=== PATIENT | male | born 1965 | race Caucasian/White ===

== ENCOUNTER 2017-01-09 15:38 | Emergency (ER) | payer SELFPAY ==
[2017-01-09 15:51] VITALS: BMI 32.1
[2017-01-09 15:55] VITALS: TEMP 98.3; O2SAT 97
[2017-01-09] MEDS ORDERED: Sodium Chloride 0.9% 1,000 ML IV STA (16:18)
[2017-01-09 16:31] VITALS: RESP 18
[2017-01-09 17:09] LABS: ADD MANUAL DIFF? NO
[2017-01-09 17:21] LABS: BASO # 0.04 K/mm3 (0.0-2.0); BASO % 0.5 % (0.0-3.0); EOS # 0.2 (0.0-0.7); EOS % 2.8 % (1.5-5.0); GRAN % 50.7 % (50.0-68.0); HEMATOCRIT 41.5 % (42.0-52.0); LYMPH # 3.3 (1.2-3.4); LYMPH % 37.9 % (22.0-35.0); MEAN CELL VOLUME 85.6 fL (80.0-105.0); MEAN CORPUSCULAR HEMOGLOBIN 29.5 pg (25.0-35.0); MEAN CORPUSCULAR HGB CONC 34.5 g/dl (31.0-37.0); MEAN PLATELET VOLUME 9.5 fl (7.0-11.0); MONO # 0.7 (0.1-0.6); MONO % 8.1 % (1.0-6.0); PLATELET COUNT 240 10^3/uL (120.0-450.0); WHITE BLOOD COUNT 8.7 10^3/ul (4.5-11.0)
[2017-01-09 17:28] LABS: ALB/GLOB RATIO 1.2 (1.1-1.8); ALKALINE PHOSPHATASE 87 U/L (38-133); ALT/SGPT 47 U/L (7-56); AST/SGOT 31 U/L (15-59); BILIRUBIN,TOTAL 0.8 mg/dL (0.2-1.3); BLOOD UREA NITROGEN 13 mg/dL (7-21); CALCIUM 9.4 mg/dL (8.4-10.5); CARBON DIOXIDE 26 mmol/L (21-33); CHLORIDE 104 mmol/L (98-107); GFR AFRICAN-AMERICAN > 60; GLUCOSE,RANDOM 81 mg/dL (70-110); LIPASE 93 U/L (23-300); POTASSIUM 4.4 mmol/L (3.6-5.0); SODIUM 140 mmol/L (132-148); TOTAL PROTEIN 8.3 g/dL (5.8-8.3)
[2017-01-09 17:30] LABS: URINE APPEARANCE CLEAR (CLEAR); URINE BILIRUBIN NEGATIVE (NEGATIVE); URINE BLOOD SMALL (NEGATIVE); URINE COLOR YELLOW (YELLOW); URINE GLUCOSE (UA) NEGATIVE (NEGATIVE); URINE KETONE NEGATIVE (NEGATIVE); URINE LEUKOCYTE ESTERASE NEGATIVE Leu/uL (NEGATIVE); URINE PROTEIN NEGATIVE mg/dL (<30 mg/dL); URINE UROBILINOGEN 0.2 E.U./dL (<1 E.U./dL)
--- NOTE | 2017-01-09 17:33 | ED PDOC ---
Arrival/HPI - General Chief Complaint: GI Problem Time Seen by Provider: 01/09/17 16:15 Historian: Patient - History of Present Illness Narrative History of Present Illness (Text): 01/09/17 17:27 51-year-old male presents today with a 2 week history of worsening abdominal pain with constipation. Patient states he has been dealing with constipation for a while. Patient states he is concerned that something is wrong with his kidneys because he states he is very dry. Patient states he drinks lots of fluids. He denies nausea or vomiting. Patient states last bowel movement was today. Patient denies radiation of pain to the back. At times he feels cramping and bubbling sensation in the abdomen. Patient states his appetite has been unchanged, but he states he hasn't been eating as great as he should be. No medications have been taken at home. No other complaints. Past Medical History - Provider Review Nursing Documentation Reviewed: Yes - Travel History Have you recently traveled outside [place] w/in the past 3 mons?: Yes If Yes, travel location?: [place] - Past History Past History: No Previous - Infectious Disease Hx of Infectious Diseases: None - Past Medical History Past Medical History: No Previous - Cardiac Hx Cardiac Disorders: No - Pulmonary Hx Respiratory Disorders: No - Neurological Hx Neurological Disorder: No - HEENT Hx HEENT Disorder: No - Renal Hx Renal Disorder: No - Endocrine/Metabolic Hx Endocrine Disorders: No - Hematological/Oncological Hx Blood Disorders: No - Integumentary Hx Dermatological Disorder: No - Musculoskeletal/Rheumatological Hx Musculoskeletal Disorders: No - Gastrointestinal Hx Gastrointestinal Disorders: Yes Hx Constipation: Yes - Genitourinary/Gynecological Hx Genitourinary Disorders: No Hx Sexually Transmitted Diseases: No - Psychiatric Hx Psychophysiologic Disorder: Yes Hx Substance Use: No Other/Comment: imsomnia - Past Surgical History Past Surgical History: No Previous - Surgical History Other/Comment: colonoscopy - Anesthesia Hx Anesthesia: Yes Hx Anesthesia Reactions: No Hx Malignant Hyperthermia: No - Suicidal Assessment Feels Threatened In Home Enviroment: No Family/Social History - Physician Review Nursing Documentation Reviewed: Yes Family/Social History: Unknown Family HX Smoking Status: Current Some Days Smoker Hx Alcohol Use: No Hx Substance Use: No Allergies/Home Meds Allergies/Adverse Reactions: Allergies No Known Allergies Allergy (Verified 01/09/17 15:51) Review of Systems - Review of Systems Constitutional: absent: Fatigue, Fevers Respiratory: absent: SOB, Cough Cardiovascular: absent: Chest Pain, Palpitations Gastrointestinal: Abdominal Pain, Constipation. absent: Diarrhea, Nausea, Vomiting Genitourinary Male: absent: Dysuria, Frequency, Hematuria Musculoskeletal: absent: Arthralgias, Back Pain, Neck Pain Skin: absent: Rash, Pruritis Psychiatric: absent: Anxiety, Depression Physical Exam Vital Signs Reviewed: Yes Vital Signs Temp Pulse Resp BP Pulse Ox 01/09/17 18:20 66 18 136/75 97 01/09/17 16:30 69 18 138/79 97 01/09/17 15:54 98.3 F 74 16 142/80 97 Temperature: Afebrile Blood Pressure: Normal Pulse: Regular Respiratory Rate: Normal Appearance: Positive for: Well-Appearing, Non-Toxic, Comfortable Pain Distress: None Mental Status: Positive for: Alert and Oriented X 3 - Systems Exam Head: Present: Atraumatic Mouth: Present: Moist Mucous Membranes Neck: Present: Normal Range of Motion Respiratory/Chest: Present: Clear to Auscultation, Good Air Exchange. No: Respiratory Distress, Accessory Muscle Use Cardiovascular: Present: Regular Rate and Rhythm, Normal S1, S2. No: Murmurs Abdomen: Present: Tenderness (minimal lower abdominal tenderness), Normal Bowel Sounds. No: Distention, Peritoneal Signs, Rebound, Guarding Back: Present: Normal Inspection. No: CVA Tenderness Upper Extremity: Present: Normal Inspection Lower Extremity: Present: Normal Inspection Neurological: Present: GCS=15 Skin: Present: Warm, Dry, Normal Color. No: Rashes Psychiatric: Present: Alert, Oriented x 3 Medical Decision Making ED Course and Treatment: 01/09/17 17:34 Patient is nontoxic well appearing with stable vital signs presenting with abdominal pain with constipation. CBC wnl CMP wnl Urinalysis: small blood CAT scan: FINDINGS: LOWER THORAX: Unremarkable. LIVER: Unremarkable. No gross lesion or ductal dilatation. GALLBLADDER AND BILE DUCTS: Unremarkable. PANCREAS: Unremarkable. No gross lesion or ductal dilatation. SPLEEN: Unremarkable. ADRENALS: Unremarkable. No mass. KIDNEYS AND URETERS: Unremarkable. No hydronephrosis. No solid mass. VASCULATURE: Unremarkable. No aortic aneurysm. BOWEL: Diverticulosis without an acute inflammatory component or other associated pathologic process. APPENDIX: Unremarkable. Normal appendix. PERITONEUM: Unremarkable. No free fluid. No free air. LYMPH NODES: Unremarkable. No enlarged lymph nodes. BLADDER: Unremarkable. REPRODUCTIVE: Unremarkable. BONES: No acute fracture. OTHER FINDINGS: None. IMPRESSION: No acute findings related to/accounting for the clinical presentation. Patient reassessment: pt non toxic well appearing; no distress. Discussed all results with patient in depth. advised increasing fluids, increasing fiber. advised f/u with PMD/clinic and GI doctor within the next 2 days. advised immediate return if symptoms worsen,persist or if new symptoms develop. Impression: Abdominal pain, constipation Motrin every 6 hours as needed for pain Increase fluids Colace; 1 tablet twice daily Follow up with primary care physician within the next 2 days Follow up with the GI doctor within the next 2 days. Return immediately if symptoms worsen persist or if new symptoms develop: High fevers, increasing pain, vomiting, diarrhea or any other concerning symptoms develop - Lab Interpretations Lab Results: 01/09/17 17:02 01/09/17 17:02 Lab Results 01/09/17 17:02: WBC 8.7, RBC 4.85, Hgb 14.3, Hct 41.5 L, MCV 85.6, MCH 29.5, MCHC 34.5, RDW 13.0, Plt Count 240, MPV 9.5, Gran % 50.7, Lymph % (Auto) 37.9 H , [place] % (Auto) 8.1 H, Eos % (Auto) 2.8, Baso % (Auto) 0.5, Gran # 4.40, Lymph # 3.3, [place] # 0.7 H, Eos # 0.2, Baso # 0.04 01/09/17 17:02: Sodium 140, Potassium 4.4, Chloride 104, Carbon Dioxide 26, Anion Gap 14, BUN 13, Creatinine 1.0, Est GFR ( Amer) > 60, Est GFR (Non- Af Amer) > 60, Random Glucose 81, Calcium 9.4, Total Bilirubin 0.8, AST 31, ALT 47, Alkaline Phosphatase 87, Total Protein 8.3, Albumin 4.6, Globulin 3.8, Albumin/Globulin Ratio 1.2, Lipase 93 01/09/17 17:02: Urine Color Yellow, Urine Appearance Clear, Urine pH 6.0, Ur Specific [place] 1.025, Urine Protein Negative, Urine Glucose (UA) Negative, Urine Ketones Negative, Urine Blood Small H, Urine Nitrate Negative, Urine Bilirubin Negative, Urine Urobilinogen 0.2, Ur Leukocyte Esterase Negative, Urine RBC 1 - 3, Urine WBC Negative, Ur Epithelial Cells 0 - 2, Urine Bacteria Trace - RAD Interpretation Radiology Orders: 01/09/17 16:39 ABD & PELVIS W/O PO OR IV CONT [CT] Stat - Medication Orders Current Medication Orders: Discontinued Medications Sodium Chloride (Sodium Chloride 0.9%) 1,000 mls @ 999 mls/hr IV .Q1H1M STA Stop: 01/09/17 17:18 Disposition/Present on Arrival - Present on Arrival Any Indicators Present on Arrival: No History of DVT/PE: No History of Uncontrolled Diabetes: No Urinary Catheter: No History of Decub. Ulcer: No History Surgical Site Infection Following: None - Disposition Have Diagnosis and Disposition been Completed?: Yes Diagnosis: Abdominal pain, Constipation Disposition: HOME/ ROUTINE Disposition Time: 18:17 Patient Plan: Discharge Patient Problems: Current Active Problems Problem Status Onset Abdominal pain Acute Condition: GOOD Discharge Instructions (ExitCare): Abdominal Pain (ED), Constipation (ED) Additional Instructions: Motrin every 6 hours as needed for pain Increase fluids Colace; 1 tablet twice daily Follow up with primary care physician within the next 2 days Follow up with the GI doctor within the next 2 days. Return immediately if symptoms worsen persist or if new symptoms develop: High fevers, increasing pain, vomiting, diarrhea or any other concerning symptoms develop Prescriptions: Docusate [Colace] 100 mg PO BID #30 cap Referrals: Darell Jacob DO [Staff Provider] - Follow up with primary [facility] at [facility] [place] [Outside] - Follow up with primary Yao ESCOTO,MD Johan [Medical Doctor] - Follow up with primary
[2017-01-09 17:47] LABS: URINE BACTERIA TRACE (NEG); URINE EPITHELIAL CELLS 0 - 2 /hpf (0-5); URINE WBC NEGATIVE /hpf (0-6)
--- NOTE | 2017-01-09 18:05 | CT ---
PROCEDURE: CT Abdomen and Pelvis without intravenous contrast HISTORY: ABDOMINAL PAIN. Unspecified GI problem. COMPARISON: None. TECHNIQUE: Unenhanced study. Neither oral nor intravenous contrast administered. Radiation dose: Total exam DLP = 83.93 mGy-cm. This CT exam was performed using one or more of the following dose reduction techniques: Automated exposure control, adjustment of the mA and/or kV according to patient size, and/or use of iterative reconstruction technique. FINDINGS: LOWER THORAX: Unremarkable. LIVER: Unremarkable. No gross lesion or ductal dilatation. GALLBLADDER AND BILE DUCTS: Unremarkable. PANCREAS: Unremarkable. No gross lesion or ductal dilatation. SPLEEN: Unremarkable. ADRENALS: Unremarkable. No mass. KIDNEYS AND URETERS: Unremarkable. No hydronephrosis. No solid mass. VASCULATURE: Unremarkable. No aortic aneurysm. BOWEL: Diverticulosis without an acute inflammatory component or other associated pathologic process. APPENDIX: Unremarkable. Normal appendix. PERITONEUM: Unremarkable. No free fluid. No free air. LYMPH NODES: Unremarkable. No enlarged lymph nodes. BLADDER: Unremarkable. REPRODUCTIVE: Unremarkable. BONES: No acute fracture. OTHER FINDINGS: None. IMPRESSION: No acute findings related to/accounting for the clinical presentation.
[2017-01-09 18:20] VITALS: BP 136/75; PULSE 66
== END 2017-01-09 19:01 | disposition home or self-care (01) ==
LOC: ED 15:38
DX: R10.9 Unspecified abdominal pain (principal); K59.00 Constipation, unspecified

== ENCOUNTER 2017-03-10 19:06 | Emergency (ER) | payer SELFPAY ==
[2017-03-10 19:50] VITALS: BMI 31.3
[2017-03-10 19:51] VITALS: O2SAT 98
[2017-03-10 21:32] LABS: BASO # 0.01 K/mm3 (0.0-2.0); BASO % 0.2 % (0.0-3.0); EOS % 0.2 % (1.5-5.0); GRAN # 3.88 (1.4-6.5); GRAN % 68.1 % (50.0-68.0); LYMPH # 1.3 (1.2-3.4); LYMPH % 22.5 % (22.0-35.0); MEAN CELL VOLUME 85.7 fL (80.0-105.0); MEAN CORPUSCULAR HEMOGLOBIN 29.5 pg (25.0-35.0); MEAN CORPUSCULAR HGB CONC 34.4 g/dl (31.0-37.0); MONO # 0.5 (0.1-0.6); PLATELET COUNT 152 10^3/uL (120.0-450.0); RBC 4.75 10^6/uL (3.5-6.1); RED CELL DISTRIBUTION WIDTH 12.5 % (11.5-14.5); VENOUS BLOOD GAS BASE EXCESS 0.5 mmol/L (0.0-2.0); VENOUS BLOOD GAS PO2 94 mm/Hg (30-55); VENOUS BLOOD PH 7.43 (7.32-7.43); WHITE BLOOD COUNT 5.7 10^3/ul (4.5-11.0)
[2017-03-10 21:46] LABS: ALB/GLOB RATIO 1.4 (1.1-1.8); ALBUMIN 4.5 g/dL (3.0-4.8); ALT/SGPT 41 U/L (7-56); AST/SGOT 27 U/L (15-59); BLOOD UREA NITROGEN 7 mg/dL (7-21); CALCIUM 9.2 mg/dL (8.4-10.5); GFR AFRICAN-AMERICAN > 60; GFR NON-AFRICAN AMERICAN > 60
[2017-03-10 21:56] LABS: TROPONIN I 0.02 ng/mL
--- NOTE | 2017-03-10 22:24 | ED PDOC ---
Arrival/HPI - General Chief Complaint: Fever Time Seen by Provider: 03/10/17 19:57 Historian: Patient - History of Present Illness Narrative History of Present Illness (Text): 03/10/17 20:05 Ranjith Ceron is a 51 year old male who presents to the emergency department for evaluation of subjective fever and generalized weakness since earlier today. Patient does not endorse any other complaints. Denies any headache, dizziness, nausea, vomiting, diarrhea, urinary symptoms, or any other complaints at this time. Time/Duration: Other (today ) Symptom Onset: Gradual Symptom Course: Unchanged Severity Level: Mild Activities at Onset: Light Past Medical History - Provider Review Nursing Documentation Reviewed: Yes - Past History Past History: No Previous - Infectious Disease Hx of Infectious Diseases: None - Past Medical History Past Medical History: No Previous - Cardiac Hx Cardiac Disorders: No - Pulmonary Hx Respiratory Disorders: No - Neurological Hx Neurological Disorder: No - HEENT Hx HEENT Disorder: No - Renal Hx Renal Disorder: No - Endocrine/Metabolic Hx Endocrine Disorders: No - Hematological/Oncological Hx Blood Disorders: No - Integumentary Hx Dermatological Disorder: No - Musculoskeletal/Rheumatological Hx Musculoskeletal Disorders: No - Gastrointestinal Hx Gastrointestinal Disorders: Yes Hx Constipation: Yes - Genitourinary/Gynecological Hx Genitourinary Disorders: No Hx Sexually Transmitted Diseases: No - Psychiatric Hx Psychophysiologic Disorder: Yes Hx Substance Use: No Other/Comment: imsomnia - Past Surgical History Past Surgical History: No Previous - Surgical History Other/Comment: colonoscopy - Anesthesia Hx Anesthesia: Yes Hx Anesthesia Reactions: No Hx Malignant Hyperthermia: No - Suicidal Assessment Feels Threatened In Home Enviroment: No Family/Social History - Physician Review Nursing Documentation Reviewed: Yes Family/Social History: No Known Family HX Smoking Status: Current Some Days Smoker Hx Alcohol Use: No Hx Substance Use: No Allergies/Home Meds Allergies/Adverse Reactions: Allergies No Known Allergies Allergy (Verified 01/09/17 15:51) Home Medications: Home Meds Medication Instructions Recorded Confirmed No Known Home Med 03/10/17 03/10/17 Review of Systems - Physician Review All systems were reviewed & negative as marked: Yes - Review of Systems Constitutional: Fatigue, Fevers Respiratory: Normal. absent: SOB, Cough, Sputum Cardiovascular: Normal. absent: Chest Pain, Palpitations Gastrointestinal: Normal. absent: Abdominal Pain, Diarrhea, Nausea, Vomiting Neurological: Normal. absent: Headache Psychiatric: Normal Physical Exam Vital Signs Reviewed: Yes Vital Signs Temp Pulse Resp BP Pulse Ox 03/11/17 01:07 98.4 F 73 18 107/62 98 03/10/17 19:50 100.7 F H 91 H 16 100/63 98 Temperature: Febrile Blood Pressure: Normal Pulse: Regular Respiratory Rate: Normal Appearance: Positive for: Well-Appearing, Non-Toxic, Comfortable Pain Distress: None Mental Status: Positive for: Alert and Oriented X 3 - Systems Exam Head: Present: Atraumatic, Normocephalic Pupils: Present: PERRL Extroacular Muscles: Present: EOMI Conjunctiva: Present: Normal Mouth: Present: Moist Mucous Membranes Respiratory/Chest: Present: Clear to Auscultation, Good Air Exchange. No: Respiratory Distress, Accessory Muscle Use Cardiovascular: Present: Regular Rate and Rhythm, Normal S1, S2. No: Murmurs Abdomen: Present: Normal Bowel Sounds. No: Tenderness, Distention, Peritoneal Signs Upper Extremity: Present: Normal Inspection. No: Cyanosis, Edema Lower Extremity: Present: Normal Inspection. No: Edema Neurological: Present: GCS=15, CN II-XII Intact, Speech Normal, Motor Func Grossly Intact, Normal Sensory Function Skin: Present: Warm, Dry, Normal Color. No: Rashes Psychiatric: Present: Alert, Oriented x 3, Normal Insight, Normal Concentration Medical Decision Making ED Course and Treatment: 03/10/17 20:05 Impression: A 51 year old male who presents to the emergency department for evaluation of fever, and generalized weakness. Plan: -- EKG -- Labs -- Chest X-ray -- Tylenol -- Urine Culture -- Urinalysis -- Reassess and disposition Progress Notes: 03/10/17 20:58 EKG reviewed by me: NSR @ 86 bpm. Normal [place]. Normal interval. 03/11/17 01:10 On re-evaluation, patient feels better and is in no acute distress. I have discussed the results and plan with the patient, who expresses understanding. Patient in agreement with plan to be discharged home. Patient is stable for discharge. Patient was instructed to follow up with physician or return if symptoms worsen or new concerning symptoms arise. - Lab Interpretations Microbiology Results: Microbiology Results 03/10/17 23:00 Urine,Clean Catch Urine Culture - Final No Growth (<1,000 CFU/ML) Lab Results: 03/10/17 21:15 03/10/17 21:15 Lab Results 03/10/17 23:00: Urine Color Yellow, Urine Appearance Clear, Urine pH 7.0, Ur Specific [place] 1.010, Urine Protein Negative, Urine Glucose (UA) Negative, Urine Ketones Negative, Urine Blood Trace-intact H, Urine Nitrate Negative, Urine Bilirubin Negative, Urine Urobilinogen 0.2, Ur Leukocyte Esterase Negative , Urine RBC 0 - 2, Urine WBC 0 - 2, Ur Epithelial Cells 0 - 2 03/10/17 21:15: pO2 94 H, VBG pH 7.43, VBG pCO2 37.0 L, VBG HCO3 24.6, VBG Total CO2 25.7, VBG O2 Sat (Calc) 99.0 H, VBG Base Excess 0.5, VBG Potassium 4.1 , Sodium 136.0, Chloride 105.0, Glucose 95, Lactate 1.0, FiO2 21.0, Venous Blood Potassium 4.1 03/10/17 21:15: Sodium 138, Chloride 102, Potassium 3.8, Carbon Dioxide 26, Anion Gap 14, BUN 7, Creatinine 1.2, Est GFR ( Amer) > 60, Est GFR (Non- Af Amer) > 60, Random Glucose 82, Calcium 9.2, Total Bilirubin 0.9, AST 27, ALT 41, Alkaline Phosphatase 88, Troponin I 0.02, Total Protein 7.7, Albumin 4.5, Globulin 3.3, Albumin/Globulin Ratio 1.4 03/10/17 21:15: WBC 5.7 D, RBC 4.75, Hgb 14.0, Hct 40.7 L, MCV 85.7, MCH 29.5, MCHC 34.4, RDW 12.5, Plt Count 152, MPV 9.0, Gran % 68.1 H, Lymph % (Auto) 22.5 , [place] % (Auto) 9.0 H, Eos % (Auto) 0.2 L, Baso % (Auto) 0.2, Gran # 3.88, Lymph # 1.3, [place] # 0.5, Eos # 0.0, Baso # 0.01 I have reviewed the lab results: Yes - RAD Interpretation Radiology Orders: 03/10/17 21:48 CHEST TWO VIEWS (PA/LAT) [RAD] Stat - EKG Interpretation Interpreted by ED Physician: Yes Type: 12 lead EKG - Medication Orders Current Medication Orders: Discontinued Medications Acetaminophen (Tylenol 325mg Tab) 650 mg PO STAT STA Stop: 03/10/17 20:13 Last Admin: 03/10/17 20:53 Dose: 650 mg Ibuprofen (Motrin Tab) 400 mg PO ONCE STA Stop: 03/11/17 00:23 Last Admin: 03/11/17 01:06 Dose: 400 mg - Scribe Statement The provider has reviewed the documentation as recorded by the Elba Osuna Provider Attestation: Provider Scribe Attestation: All medical record entries made by the Zackeryibjoceline were at my direction and personally dictated by me. I have reviewed the chart and agree that the record accurately reflects my personal performance of the history, physical exam, medical decision making, and the department course for this patient. I have also personally directed, reviewed, and agree with the discharge instructions and disposition. Disposition/Present on Arrival - Present on Arrival Any Indicators Present on Arrival: No History of DVT/PE: No History of Uncontrolled Diabetes: No Urinary Catheter: No History of Decub. Ulcer: No History Surgical Site Infection Following: None - Disposition Have Diagnosis and Disposition been Completed?: Yes Diagnosis: Fever Disposition: HOME/ ROUTINE Disposition Time: 01:10 Condition: GOOD Discharge Instructions (ExitCare): Fever in Adults (ED) Referrals: PCP,NO [Primary Care Provider] - Follow up with primary
[2017-03-11] LABS: URINE BILIRUBIN NEGATIVE (NEGATIVE); URINE BLOOD TRACE-INTACT (NEGATIVE); URINE GLUCOSE (UA) NEGATIVE (NEGATIVE); URINE LEUKOCYTE ESTERASE NEGATIVE Leu/uL (NEGATIVE); URINE NITRATE NEGATIVE (NEGATIVE); URINE PROTEIN NEGATIVE mg/dL (<30 mg/dL); URINE UROBILINOGEN 0.2 E.U./dL (<1 E.U./dL)
[2017-03-11 00:16] LABS: URINE APPEARANCE CLEAR (CLEAR); URINE COLOR YELLOW (YELLOW)
[2017-03-11 00:29] LABS: URINE EPITHELIAL CELLS 0 - 2 /hpf (0-5); URINE RBC 0 - 2 /hpf (0-2); URINE WBC 0 - 2 /hpf (0-6)
[2017-03-11 01:08] VITALS: BP 107/62; PULSE 73; RESP 18; TEMP 98.4
--- NOTE | 2017-03-11 07:46 | RAD ---
HISTORY: fall COMPARISON: 08/12/2013 TECHNIQUE: Chest PA and lateral FINDINGS: LUNGS: No active pulmonary disease. PLEURA: No significant pleural effusion identified. No pneumothorax apparent. CARDIOVASCULAR: Normal. OSSEOUS STRUCTURES: No significant abnormalities. VISUALIZED UPPER ABDOMEN: Normal. OTHER FINDINGS: None. IMPRESSION: No active disease.
--- NOTE | 2017-03-11 12:42 | CARD ---
APPROVED REPORT EKG Measurement Heart [id number] <Conclusion> Normal sinus rhythm Normal ECG
== END 2017-03-11 01:07 | disposition home or self-care (01) ==
LOC: ED 19:06
DX: R50.9 Fever, unspecified (principal); F17.210 Nicotine dependence, cigarettes, uncomplicated